=== PATIENT | male | born 2000 | race African-American/Black ===

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

== ENCOUNTER 2020-12-13 12:27 | Emergency (ER) | payer BC ==
[2020-12-13 12:38] VITALS: BP 110/67; PULSE 72; TEMP 98; BMI 20.3
[2020-12-13] MEDS ORDERED: DIPHTH,PERTUSS(ACELL),TET 0.5 ML DISP.SYRIN IM ONE ×2 (12:51→13:20)
== END 2020-12-13 14:05 | disposition home or self-care (01) ==
LOC: JERFT 12:27
PROC: 3E0234Z Introduction of Serum, Toxoid and Vaccine into Muscle, Percutaneous Approach (ICD-10-PCS; principal; 2020-12-13)
DX: S61.215A Laceration without foreign body of left ring finger without damage to nail, initial encounter (principal); Y99.9 Unspecified external cause status
CPT/HCPCS: 90715; 99284-25

== ENCOUNTER 2021-08-23 20:40 | Emergency (ER) | payer BC ==
[2021-08-23 20:55] VITALS: BP 109/66; PULSE 67; TEMP 98.1; BMI 20.6
[2021-08-23] MEDS ORDERED: LIDOCAINE HCL 1%, 10 MG/ML (50 mL VIAL) SQ ONE (22:06)
[2021-08-23] MEDS ORDERED: LIDOCAINE HCL 2% (20ML MULTI-DOSE VIAL) ONE (22:09)
== END 2021-08-23 23:08 | disposition home or self-care (01) ==
LOC: JER 20:40 → JERFT 20:40 → JER 23:08
PROC: 0Y9630Z Drainage of Left Inguinal Region with Drainage Device, Percutaneous Approach (ICD-10-PCS; principal; 2021-08-23)
DX: L02.214 Cutaneous abscess of groin (principal)
CPT/HCPCS: 99283-25

== ENCOUNTER 2021-12-27 10:15 | Emergency (ER) | payer BC ==
[2021-12-27 10:25] VITALS: BP 131/73; PULSE 63; RESP 18; TEMP 98; BMI 24.2
[2021-12-27] MEDS ORDERED: IBUPROFEN 600 MG TABLET (FP) PO ONE ×2 (10:48→10:59)
== END 2021-12-27 12:32 | disposition home or self-care (01) ==
LOC: JERFT 10:15
DX: S20.212A Contusion of left front wall of thorax, initial encounter (principal); W17.89XA Other fall from one level to another, initial encounter
CPT/HCPCS: 71101-TC-LT-FY; 73130-TC-LT-FY; 99284-25

== ENCOUNTER 2023-08-21 19:06 | Emergency (ER) | payer BC ==
[2023-08-21 19:10] VITALS: TEMP 97.3; BMI 20.3
[2023-08-21] MEDS: ACETAMINOPHEN 325 MG TABLET (FP) PO ONE (20:10)
[2023-08-21] MEDS: KETOROLAC TROMETHAMINE 30 MG/1 ML VIAL IM ONE (20:10)
[2023-08-21] MEDS ORDERED: ACETAMINOPHEN 325 MG TABLET (FP) ONE (20:15)
[2023-08-21] MEDS ORDERED: KETOROLAC TROMETHAMINE 30 MG/1 ML VIAL ONE (20:16)
[2023-08-21 22:09] VITALS: BP 117/83; PULSE 62; RESP 16
== END 2023-08-21 22:17 | disposition home or self-care (01) ==
LOC: JER 19:06
PROC: 3E0233Z Introduction of Anti-inflammatory into Muscle, Percutaneous Approach (ICD-10-PCS; principal; 2023-08-21)
DX: S06.0X0A Concussion without loss of consciousness, initial encounter (principal); R10.9 Unspecified abdominal pain; Y04.8XXA Assault by other bodily force, initial encounter
CPT/HCPCS: 71046-TC-FY; 99284-25